=== PATIENT | male | born 1975 | race Caucasian/White ===

== ENCOUNTER 2020-09-24 18:06 | Emergency (ER) | payer SELFPAY ==
[~2020-09-24] VITALS: Ht 182.9 cm; Wt 104.2 kg
[2020-09-24 19:33] LABS: BASOPHILS % (AUTO) 1 % (0-1); EOSINOPHILS % (AUTO) 2 % (1-7); LYMPHOCYTES % (AUTO) 38 % (22-44); MEAN CORPUSCULAR HEMOGLOBIN 31.4 pg (27.5-34.5); MEAN CORPUSCULAR HGB CONC 34.6 g/dL (33.2-36.2); MEAN PLATELET VOLUME 7.2 fL (7.4-10.4); MONOCYTES % (AUTO) 8 % (2-9); NEUTROPHILS % (AUTO) 52 % (42-75); PLATELET COUNT 238 x10^3/uL (130-400); RED BLOOD COUNT 4.84 x10^6/uL (4.38-5.82); RED CELL DISTRIBUTION WIDTH 12.9 % (9.4-14.8)
[2020-09-24 19:46] LABS: ALBUMIN 4.3 g/dL (3.4-5.0); ANION GAP 3 mmol/L (5-15); CALCIUM 9.2 mg/dL (8.5-10.1); CHLORIDE 103 mmol/L (98-107)
[2020-09-24 19:52] LABS: ALANINE AMINOTRANSFERASE 79 U/L (12-78); ALKALINE PHOSPHATASE 50 U/L (45-117); BILIRUBIN,TOTAL 0.9 mg/dL (0.2-1.0); CREATININE 0.93 mg/dL (0.7-1.3); TOTAL PROTEIN 7.8 g/dL (6.4-8.2)
--- NOTE | 2020-09-24 20:33 | NUR ---
NIL X 1
--- NOTE | 2020-09-24 20:48 | NUR ---
PT ATTACHED TO VS AND CARDIAC MONITORS AND IS IN GOWN IN [facility]. PT VSS AT THIS TIME. PT EDUCATED ON ER PROCESS AND VERBALIZES UNDERSTANDING. PT HAS CALL LIGHT WITHIN REACH.
--- NOTE | 2020-09-24 21:14 | NUR ---
PT TO CT VIA [facility]ATH[facility]
[2020-09-24 22:09] VITALS: BP 136/83
--- NOTE | 2020-09-24 22:15 | NUR ---
Patient given discharge instructions and they have confirmed that they understand the instructions. Patient ambulatory with steady gait. NAD, all questions answered appropriately, denies additional needs at this time. No personal belongings left in room after discharge.
== END 2020-09-24 22:21 | disposition home or self-care (01) ==
LOC: ED 21:45
DX: R42 Dizziness and giddiness (principal); R94.31 Abnormal electrocardiogram [ECG] [EKG]; R07.9 Chest pain, unspecified; Z87.891 Personal history of nicotine dependence
CPT/HCPCS: 36415; 70450; 71045; 80053; 85025; 93005; 99285